=== PATIENT | male | born 1960 | race Caucasian/White ===

== ENCOUNTER 2020-02-23 07:53 | Inpatient (IN) | payer BC, OTHER ==
[2020-02-23] MEDS ORDERED: Nitroglycerin 0.4 MG Tab.SL SL PRN (07:59)
[2020-02-23] MEDS ORDERED: Sodium Chloride 0.9% 2.5 ML Syringe FLUSH PRN (07:59)
[2020-02-23] MEDS ORDERED: Aspirin 81 MG Tab.Chew PO ONE (07:59)
[2020-02-23] MEDS ORDERED: Sodium Chloride 0.9% 10 ML Syringe FLUSH PRN (07:59)
--- NOTE | 2020-02-23 08:01 | EDM.PDOC ---
ED HPI GENERAL MEDICAL PROBLEM - General Chief Complaint: Chest Pain Stated Complaint: CHEST PAIN, HIGH BLOOD PRESSURE Time Seen by Provider: 02/23/20 07:59 Source of Information: Reports: Patient History Limitations: Reports: No Limitations - History of Present Illness INITIAL COMMENTS - FREE TEXT/NARRATIVE: 59-year-old male with history of hypertension presents with chest pain and shortness of breath. Has chest pain has been intermittent since last Friday, localized to the left chest, nonradiating, associated with palpitation, shortness of breath, lightheadedness, dyspnea on exertion, orthopnea, clamminess. Today it got worse at 4:00 in the morning. Currently rated at 1/ 10. Patient is a chronic smoker and smokes about 2 packs/day, he also notes being chronically short of breath. His dyspnea has not changed today. He does note a chronic cough. He denies fever, chills, nausea, vomiting. He drank alcohol yesterday afternoon. He has not filled his medications since 2014. ROS: A 10-point review of systems, other than pertinent positives and negatives as stated per HPI, is otherwise negative PHYSICAL EXAM Vital signs noted. Pulse ox = 91% on RA (interpretation: hypoxic) General: AOx4, GCS = 15, moderate distress HEENT: dry mucous membrane Neck: supple, no meningismus, no Kernig or Brudzinski Cardiac: S1S2 tachycardia, no pedal edema Respiratory: mild respiratory distress, diminished breath sounds bilaterally with bibasilar Rales and expiratory wheezing. Tachypneic with retractions. Abdomen: Soft, nontender, no rebound or guarding, nondistended, no pulsatile mass. Back: nontender Musculoskeletal: NVI distally, no deformity Neuro: No focal deficits. MEDICAL DECISION MAKING: I reviewed the patients past medical records, lab and radiographic findings. I discussed the case with family members. My differential diagnosis included: ACS, COPD, CHF exacerbation Onset: Today - Related Data Allergies Allergy/AdvReac Type Severity Reaction Status Date / Time No Known Allergies Allergy Verified 02/23/20 08:03 Home Meds: Home Meds . [No Known Home Meds] 07/14/15 [History] Past Medical History - Past Health History Medical/Surgical History: Denies Medical/Surgical History ED ROS GENERAL - Review of Systems Review Of Systems: See Below (see dictation) ED EXAM, GENERAL - Physical Exam Exam: See Below (see dictation) ED CARDIOLOGY PROCEDURES - Additional/Other Procedure(s) Other (Free Text) Procedure(s): Advanced Care Planning: Aggregate [id number] time discussing end of life advanced care plan with patient and family for duration between 16 minutes. Discussed pulse, CPR, intubation, treatment goals, quality of life and intensity of care. Patient desires Full Code EKG INTERPRETATION EKG Interpretation Comments: #1: 110 bpm, sinus tachycardia, normal QRS interval, poor R wave progression, hyperacute T waves, no STEMI. EKG and rhythm strip interpreted by me at 0753 #2: 83 Bpm, NSR, normal QRS interval, no STEMI. EKG and rhythm strip interpreted by me at 1120 Course - Vital Signs Last Recorded V/S: Last Vital Signs Temp 98.5 F 02/23/20 07:59 Pulse 98 02/23/20 09:36 Resp 20 02/23/20 09:36 BP 148/79 H 02/23/20 09:36 Pulse Ox 92 L 02/23/20 10:36 - Orders/Labs/Meds Orders: Active Orders 24 hr Category Date Time Status Admission Status [Patient Status] [ADT] Stat ADT 02/23/20 12:09 Ordered Cardiac Monitoring [RC] . DIRECTED Care 02/23/20 07:59 Active EKG 12 Lead [EKG Documentation Completion] [RC] STAT Care 02/23/20 10:57 Active EKG Documentation Completion [RC] STAT Care 02/23/20 07:59 Active Pulse Oximetry [RC] ASDIRECTED Care 02/23/20 07:59 Active RT Aerosol Therapy [RC] ASDIRECTED Care 02/23/20 08:16 Active RT Aerosol Therapy [RC] ASDIRECTED Care 02/23/20 08:28 Active RT Aerosol Therapy [RC] ASDIRECTED Care 02/23/20 08:29 Active CULTURE BLOOD [BC] Stat Lab 02/23/20 09:25 Received CULTURE BLOOD [BC] Stat Lab 02/23/20 09:31 Received PROCALCITONIN [REF] Stat Lab 02/23/20 07:55 Received Nitroglycerin [Nitrostat] Med 02/23/20 07:59 Active 0.4 mg SL Q5M PRN Sodium Chloride 0.9% [Saline Flush] Med 02/23/20 07:59 Active 10 ml FLUSH ASDIRECTED PRN Sodium Chloride 0.9% [Saline Flush] Med 02/23/20 07:59 Active 2.5 ml FLUSH ASDIRECTED PRN Blood Culture x2 Reflex Set [OM.PC] Stat Oth 02/23/20 09:19 Ordered Isolation [COMM] Stat Oth 02/23/20 08:30 Active Saline Lock Insert [OM.PC] Stat Oth 02/23/20 07:59 Ordered Medication Orders Nitroglycerin (Nitrostat) 0.4 mg SL Q5M PRN PRN Reason: Chest Pain Last Admin: 02/23/20 08:11 Dose: 0.4 mg Sodium Chloride (Saline Flush) 10 ml FLUSH ASDIRECTED PRN PRN Reason: Keep Vein Open Last Admin: 02/23/20 08:11 Dose: 10 ml Sodium Chloride (Saline Flush) 2.5 ml FLUSH ASDIRECTED PRN PRN Reason: Keep Vein Open Last Admin: 02/23/20 08:11 Dose: 2.5 ml Labs: Laboratory Tests 02/23/20 02/23/20 02/23/20 Range/Units 07:55 07:55 07:55 WBC 13.36 H (4.0-11.0) K/uL RBC 5.48 (4.50-5.90) M/uL Hgb 18.1 H (13.0-17.0) g/dL Hct 52.3 H (38.0-50.0) % MCV 95.4 (80.0-98.0) fL MCH 33.0 H (27.0-32.0) pg MCHC 34.6 (31.0-37.0) g/dL RDW Std Deviation 49.5 (28.0-62.0) fl RDW Coeff of Andrew 14 (11.0-15.0) % Plt Count 249 (150-400) K/uL MPV 9.50 (7.40-12.00) fL Neut % (Auto) 72.7 (48.0-80.0) % Lymph % (Auto) 19.3 (16.0-40.0) % [place] % (Auto) 6.6 (0.0-15.0) % Eos % (Auto) 0.7 (0.0-7.0) % Baso % (Auto) 0.7 (0.0-1.5) % Neut # (Auto) 9.7 H (1.4-5.7) K/uL Lymph # (Auto) 2.6 H (0.6-2.4) K/uL [place] # (Auto) 0.9 H (0.0-0.8) K/uL Eos # (Auto) 0.1 (0.0-0.7) K/uL Baso # (Auto) 0.1 (0.0-0.1) K/uL Nucleated RBC % 0.0 /100WBC Nucleated RBCs # 0 K/uL INR 0.94 APTT (18.6-31.3) SEC D-Dimer, Quantitative (0.0-0.50) mg/L FEU ABG pH (7.35-7.45) ABG pCO2 (35-45) mmHG ABG pO2 (75-100) mmHG ABG HCO3 (22-26) mEq/L ABG Total CO2 ABG Base Excess (-2.0-2.0) Lactate (0.20-2.00) mmol/L Sodium 137 (136-148) mmol/L Potassium 4.2 (3.5-5.1) mmol/L Chloride 97 L (98-107) mmol/L Carbon Dioxide 24.3 (21.0-32.0) mmol/L BUN 16 (7.0-18.0) mg/dL Creatinine 1.0 (0.8-1.3) mg/dL Est Cr Clr Drug Dosing 84.20 mL/min Estimated GFR (MDRD) > 60.0 ml/min Glucose 121 H (74-106) mg/dL Calcium 9.8 (8.5-10.1) mg/dL Ferritin (26-388) ng/mL Total Bilirubin 0.8 (0.2-1.0) mg/dL AST 28 (15-37) IU/L ALT 25 (14-63) IU/L Alkaline Phosphatase 53 (46-116) U/L Lactate Dehydrogenase (81-234) U/L Troponin I < 0.050 (0.000-0.056) ng/mL B-Natriuretic Peptide (<100) PG/ML Total Protein 8.9 H (6.4-8.2) g/dL Albumin 4.7 (3.4-5.0) g/dL Globulin 4.2 H (2.6-4.0) g/dL Albumin/Globulin Ratio 1.1 (0.9-1.6) SARS-CoV-2 RNA (RT-PCR) (NEGATIVE) 02/23/20 02/23/20 02/23/20 Range/Units 07:55 07:55 07:55 WBC (4.0-11.0) K/uL RBC (4.50-5.90) M/uL Hgb (13.0-17.0) g/dL Hct (38.0-50.0) % MCV (80.0-98.0) fL MCH (27.0-32.0) pg MCHC (31.0-37.0) g/dL RDW Std Deviation (28.0-62.0) fl RDW Coeff of Andrew (11.0-15.0) % Plt Count (150-400) K/uL MPV (7.40-12.00) fL Neut % (Auto) (48.0-80.0) % Lymph % (Auto) (16.0-40.0) % [place] % (Auto) (0.0-15.0) % Eos % (Auto) (0.0-7.0) % Baso % (Auto) (0.0-1.5) % Neut # (Auto) (1.4-5.7) K/uL Lymph # (Auto) (0.6-2.4) K/uL [place] # (Auto) (0.0-0.8) K/uL Eos # (Auto) (0.0-0.7) K/uL Baso # (Auto) (0.0-0.1) K/uL Nucleated RBC % /100WBC Nucleated RBCs # K/uL INR APTT 26.4 (18.6-31.3) SEC D-Dimer, Quantitative (0.0-0.50) mg/L FEU ABG pH (7.35-7.45) ABG pCO2 (35-45) mmHG ABG pO2 (75-100) mmHG ABG HCO3 (22-26) mEq/L ABG Total CO2 ABG Base Excess (-2.0-2.0) Lactate (0.20-2.00) mmol/L Sodium (136-148) mmol/L Potassium (3.5-5.1) mmol/L Chloride (98-107) mmol/L Carbon Dioxide (21.0-32.0) mmol/L BUN (7.0-18.0) mg/dL Creatinine (0.8-1.3) mg/dL Est Cr Clr Drug Dosing mL/min Estimated GFR (MDRD) ml/min Glucose (74-106) mg/dL Calcium (8.5-10.1) mg/dL Ferritin 450 H (26-388) ng/mL Total Bilirubin (0.2-1.0) mg/dL AST (15-37) IU/L ALT (14-63) IU/L Alkaline Phosphatase (46-116) U/L Lactate Dehydrogenase (81-234) U/L Troponin I (0.000-0.056) ng/mL B-Natriuretic Peptide 6 (<100) PG/ML Total Protein (6.4-8.2) g/dL Albumin (3.4-5.0) g/dL Globulin (2.6-4.0) g/dL Albumin/Globulin Ratio (0.9-1.6) SARS-CoV-2 RNA (RT-PCR) (NEGATIVE) 02/23/20 02/23/20 02/23/20 Range/Units 07:55 07:55 08:30 WBC (4.0-11.0) K/uL RBC (4.50-5.90) M/uL Hgb (13.0-17.0) g/dL Hct (38.0-50.0) % MCV (80.0-98.0) fL MCH (27.0-32.0) pg MCHC (31.0-37.0) g/dL RDW Std Deviation (28.0-62.0) fl RDW Coeff of Andrew (11.0-15.0) % Plt Count (150-400) K/uL MPV (7.40-12.00) fL Neut % (Auto) (48.0-80.0) % Lymph % (Auto) (16.0-40.0) % [place] % (Auto) (0.0-15.0) % Eos % (Auto) (0.0-7.0) % Baso % (Auto) (0.0-1.5) % Neut # (Auto) (1.4-5.7) K/uL Lymph # (Auto) (0.6-2.4) K/uL [place] # (Auto) (0.0-0.8) K/uL Eos # (Auto) (0.0-0.7) K/uL Baso # (Auto) (0.0-0.1) K/uL Nucleated RBC % /100WBC Nucleated RBCs # K/uL INR APTT (18.6-31.3) SEC D-Dimer, Quantitative 0.56 H (0.0-0.50) mg/L FEU ABG pH (7.35-7.45) ABG pCO2 (35-45) mmHG ABG pO2 (75-100) mmHG ABG HCO3 (22-26) mEq/L ABG Total CO2 ABG Base Excess (-2.0-2.0) Lactate (0.20-2.00) mmol/L Sodium (136-148) mmol/L Potassium (3.5-5.1) mmol/L Chloride (98-107) mmol/L Carbon Dioxide (21.0-32.0) mmol/L BUN (7.0-18.0) mg/dL Creatinine (0.8-1.3) mg/dL Est Cr Clr Drug Dosing mL/min Estimated GFR (MDRD) ml/min Glucose (74-106) mg/dL Calcium (8.5-10.1) mg/dL Ferritin (26-388) ng/mL Total Bilirubin (0.2-1.0) mg/dL AST (15-37) IU/L ALT (14-63) IU/L Alkaline Phosphatase (46-116) U/L Lactate Dehydrogenase 334 H (81-234) U/L Troponin I (0.000-0.056) ng/mL B-Natriuretic Peptide (<100) PG/ML Total Protein (6.4-8.2) g/dL Albumin (3.4-5.0) g/dL Globulin (2.6-4.0) g/dL Albumin/Globulin Ratio (0.9-1.6) SARS-CoV-2 RNA (RT-PCR) NEGATIVE (NEGATIVE) 02/23/20 02/23/20 02/23/20 Range/Units 09:25 09:27 11:15 WBC (4.0-11.0) K/uL RBC (4.50-5.90) M/uL Hgb (13.0-17.0) g/dL Hct (38.0-50.0) % MCV (80.0-98.0) fL MCH (27.0-32.0) pg MCHC (31.0-37.0) g/dL RDW Std Deviation (28.0-62.0) fl RDW Coeff of Andrew (11.0-15.0) % Plt Count (150-400) K/uL MPV (7.40-12.00) fL Neut % (Auto) (48.0-80.0) % Lymph % (Auto) (16.0-40.0) % [place] % (Auto) (0.0-15.0) % Eos % (Auto) (0.0-7.0) % Baso % (Auto) (0.0-1.5) % Neut # (Auto) (1.4-5.7) K/uL Lymph # (Auto) (0.6-2.4) K/uL [place] # (Auto) (0.0-0.8) K/uL Eos # (Auto) (0.0-0.7) K/uL Baso # (Auto) (0.0-0.1) K/uL Nucleated RBC % /100WBC Nucleated RBCs # K/uL INR APTT (18.6-31.3) SEC D-Dimer, Quantitative (0.0-0.50) mg/L FEU ABG pH 7.394 (7.35-7.45) ABG pCO2 37 (35-45) mmHG ABG pO2 74 L (75-100) mmHG ABG HCO3 23 (22-26) mEq/L ABG Total CO2 19.7 ABG Base Excess -1.7 (-2.0-2.0) Lactate 1.9 (0.20-2.00) mmol/L Sodium (136-148) mmol/L Potassium (3.5-5.1) mmol/L Chloride (98-107) mmol/L Carbon Dioxide (21.0-32.0) mmol/L BUN (7.0-18.0) mg/dL Creatinine (0.8-1.3) mg/dL Est Cr Clr Drug Dosing mL/min Estimated GFR (MDRD) ml/min Glucose (74-106) mg/dL Calcium (8.5-10.1) mg/dL Ferritin (26-388) ng/mL Total Bilirubin (0.2-1.0) mg/dL AST (15-37) IU/L ALT (14-63) IU/L Alkaline Phosphatase (46-116) U/L Lactate Dehydrogenase (81-234) U/L Troponin I < 0.050 (0.000-0.056) ng/mL B-Natriuretic Peptide (<100) PG/ML Total Protein (6.4-8.2) g/dL Albumin (3.4-5.0) g/dL Globulin (2.6-4.0) g/dL Albumin/Globulin Ratio (0.9-1.6) SARS-CoV-2 RNA (RT-PCR) (NEGATIVE) Meds: Medications Generic Name Dose Route Start Last Admin Trade Name Freq PRN Reason Stop Dose Admin Nitroglycerin 0.4 mg 02/23/20 07:59 02/23/20 08:11 Nitrostat SL 0.4 mg Q5M PRN Administration Chest Pain Sodium Chloride 10 ml 02/23/20 07:59 02/23/20 08:11 Saline Flush FLUSH 10 ml ASDIRECTED PRN Administration Keep Vein Open Sodium Chloride 2.5 ml 02/23/20 07:59 02/23/20 08:11 Saline Flush FLUSH 2.5 ml ASDIRECTED PRN Administration Keep Vein Open Discontinued Medications Generic Name Dose Route Start Last Admin Trade Name Adam PRN Reason Stop Dose Admin Albuterol/Ipratropium 3 ml 02/23/20 08:16 02/23/20 08:31 Duoneb 3.0-0.5 Mg/3 Ml NEB 02/23/20 08:17 3 ml ONETIME ONE Administration Albuterol/Ipratropium 3 ml 02/23/20 08:28 02/23/20 08:31 Duoneb 3.0-0.5 Mg/3 Ml NEB 02/23/20 08:29 3 ml ONETIME ONE Administration Albuterol/Ipratropium 3 ml 02/23/20 08:29 02/23/20 08:31 Duoneb 3.0-0.5 Mg/3 Ml NEB 02/23/20 08:30 3 ml ONETIME ONE Administration Aspirin 324 mg 02/23/20 07:59 02/23/20 08:10 Aspirin PO 02/23/20 08:00 324 mg ONETIME ONE Administration Sodium Chloride 1,000 mls @ 999 mls/hr 02/23/20 08:41 02/23/20 08:42 Normal Saline IV 02/23/20 09:41 999 mls/hr .Bolus ONE Administration Methylprednisolone Sodium Succinate 125 mg 02/23/20 08:16 02/23/20 08:26 Solu-Medrol IVPUSH 02/23/20 08:17 125 mg ONETIME ONE Administration - Re-Assessments/Exams Free Text/Narrative Re-Assessment/Exam: 02/23/20 08:23 - patient given ASA 324mg PO, and 1 SL NTG, chest pain resolved, but now he's diaphoretic and retracting more significantly, will place on BiPAP for respiratory distress. Ordered DuoNeb treatment and Solu-Medrol 125mg IV. 02/23/20 08:33 - BP after 1 NTG = 99/65. Being placed on Bipap now. Free Text/Narrative Re-Assessment/Exam: 02/23/20 10:50 -patient symptoms much improved after Solu-Medrol, BiPAP, he is now normal weaned off BiPAP, no longer retracting or tachypneic. He feels much improved. He is 92% on 4L NC now. 02/23/20 11:30 - Paging Dr. Fraga for admission. 02/23/20 12:12 -case discussed with Dr. Fraga, who agrees to assume care at this point. The hospitalist's documentation supersedes all other documentation on this patient with regard to any conflicts or discrepancies from this point forward. Any emergency conditions have been treated to the ability of the ED prior to admission. Departure - Departure Time of Disposition: 11:31 Disposition: Admitted As Inpatient 66 Condition: Good, Fair Clinical Impression: Hypoxic, Respiratory failure with hypoxia, COPD exacerbation, Respiratory distress, Tobacco abuse, Tobacco dependence, Advance care planning Referrals: PCP,None [Primary Care Provider] - Forms: ED Department Discharge Critical Care Note - Critical Care Note Comments: Critical Care: The high probability of sudden, clinically significant deterioration in the patient's condition required the highest level of my preparedness to intervene urgently. The services I provided to this patient were to treat and/or prevent clinically significant deterioration. Services included the following: chart data review, reviewing nursing notes and/or old charts, documentation time, organization development consultant collaboration regarding findings and treatment options, medication orders and management, direct patient care, vital sign assessments and ordering, interpreting and reviewing diagnostic studies/lab tests. Aggregate critical care time includes only time during which I was engaged in work directly related to the patient's care, as described above, whether at the bedside or elsewhere in the Emergency Department. It did not include time spent performing other reported procedures or the services of residents, students, nurses or physician assistants. Frequent interventions and/or frequent repeat evaluations were required as well as counseling and coordination of care regarding prognosis, treatments, and discussions with patient, staff and consultants. Critical Care (excluding other procedures): 40 minutes Sepsis Event Note (ED) - Focused Exam Vital Signs: Vital Signs Temp Pulse Resp BP BP Pulse Ox 02/23/20 10:36 92 L 02/23/20 10:35 90 L 02/23/20 09:36 98 20 148/79 H 92 L 02/23/20 08:52 81 20 147/79 H 91 L 02/23/20 08:34 84/53 L 02/23/20 08:25 99/65 02/23/20 08:11 176/96 H 02/23/20 07:59 98.5 F 121 H 20 198/98 H 91 L - My Orders Last 24 Hours: My Active Orders 02/23/20 07:55 PROCALCITONIN [REF] Stat 02/23/20 07:59 Cardiac Monitoring [RC] . DIRECTED EKG Documentation Completion [RC] STAT Pulse Oximetry [RC] ASDIRECTED Nitroglycerin [Nitrostat] 0.4 mg SL Q5M PRN Sodium Chloride 0.9% [Saline Flush] 10 ml FLUSH ASDIRECTED PRN Sodium Chloride 0.9% [Saline Flush] 2.5 ml FLUSH ASDIRECTED PRN Saline Lock Insert [OM.PC] Stat 02/23/20 08:16 RT Aerosol Therapy [RC] ASDIRECTED 02/23/20 08:28 RT Aerosol Therapy [RC] ASDIRECTED 02/23/20 08:29 RT Aerosol Therapy [RC] ASDIRECTED 02/23/20 08:30 Isolation [COMM] Stat 02/23/20 09:19 Blood Culture x2 Reflex Set [OM.PC] Stat 02/23/20 09:25 CULTURE BLOOD [BC] Stat 02/23/20 09:31 CULTURE BLOOD [BC] Stat 02/23/20 10:57 EKG 12 Lead [EKG Documentation Completion] [RC] STAT 02/23/20 12:09 Admission Status [Patient Status] [ADT] Stat - Assessment/Plan Last 24 Hours: My Active Orders 02/23/20 07:55 PROCALCITONIN [REF] Stat 02/23/20 07:59 Cardiac Monitoring [RC] . DIRECTED EKG Documentation Completion [RC] STAT Pulse Oximetry [RC] ASDIRECTED Nitroglycerin [Nitrostat] 0.4 mg SL Q5M PRN Sodium Chloride 0.9% [Saline Flush] 10 ml FLUSH ASDIRECTED PRN Sodium Chloride 0.9% [Saline Flush] 2.5 ml FLUSH ASDIRECTED PRN Saline Lock Insert [OM.PC] Stat 02/23/20 08:16 RT Aerosol Therapy [RC] ASDIRECTED 02/23/20 08:28 RT Aerosol Therapy [RC] ASDIRECTED 02/23/20 08:29 RT Aerosol Therapy [RC] ASDIRECTED 02/23/20 08:30 Isolation [COMM] Stat 02/23/20 09:19 Blood Culture x2 Reflex Set [OM.PC] Stat 02/23/20 09:25 CULTURE BLOOD [BC] Stat 02/23/20 09:31 CULTURE BLOOD [BC] Stat 02/23/20 10:57 EKG 12 Lead [EKG Documentation Completion] [RC] STAT 02/23/20 12:09 Admission Status [Patient Status] [ADT] Stat
[2020-02-23] MEDS ORDERED: methylPREDNISolone Sodium Succinate 125 MG/2 ML SDV IVPUSH ONE (08:16)
[2020-02-23] MEDS ORDERED: Albuterol/Ipratropium 3.0-0.5 MG/3 ML Neb Soln NEB ONE ×3 (08:16→08:29)
[2020-02-23 08:37] LABS: BLOOD UREA NITROGEN,BUN 16 mg/dL (7.0-18.0); CARBON DIOXIDE,CO2 24.3 mmol/L (21.0-32.0); CHLORIDE,CL 97 mmol/L (98-107); GLUCOSE RANDOM 121 mg/dL (74-106); POTASSIUM,K 4.2 mmol/L (3.5-5.1); SODIUM,NA 137 mmol/L (136-148)
[2020-02-23] MEDS ORDERED: Sodium Chloride 0.9% 1,000 ML IV ONE ×2 (08:41→12:39)
--- NOTE | 2020-02-23 08:49 | CR ---
Chest: Frontal view of the chest was obtained in AP projection. Comparison: Prior chest x-ray of 05/16/15. Heart size and mediastinum are normal. Lungs are clear with no acute parenchymal change. Bony structures are grossly intact. Lungs are hyperinflated suggesting emphysematous change. Impression: 1. Possible emphysematous change. 2. Nothing acute is appreciated. Diagnostic code #2 This report was dictated in MDT
--- NOTE | 2020-02-23 11:02 | CT ---
CT chest Technique: Multiple axial sections through the chest were obtained. Study performed as a pulmonary angiogram protocol. Intravenous contrast was therefore utilized. Comparison: Prior chest x-ray of 02/23/20. Findings: Pulmonary arteries are moderately well opacified. No filling defects are seen within the main, segmental or proximal subsegmental branches. Nothing se is seen emed to indicate pulmonary embolism within these pulmonary arteries. Smaller distal subsegmental pulmonary emboli could be missed. Mediastinum and hilar region show no adenopathy. Aorta shows no aneurysm. Atherosclerotic calcification is noted within the aorta. No pericardial thickening is seen. Coronary artery calcification is noted. Lungs show no acute parenchymal change. Small subpleural nodule is noted within the right upper lung measuring 4 mm Bony structures shows nothing acute. Impression: 1. Small 4 mm nodule within the right upper lung. If patient is a smoker, recommend repeat exam in 9 months to confirm stability. This repeat study would occur in August,. 2. No definite findings of pulmonary embolism is seen. Small distal subsegmental pulmonary emboli could be missed. 3. Other findings believed to be nonacute as noted above. Diagnostic code #9 This report was dictated in MDT
--- NOTE | 2020-02-23 12:38 | PCM.HP.2 ---
<Rayray Carr - Last Filed: 02/23/20 17:31> H&P History of Present Illness - General Date of Service: 02/23/20 Admit Problem/Dx: Admission Diagnosis/Problem Admission Diagnosis/Problem COPD, Severe chronic obstructive pulmonary disease Source of Information: Patient History Limitations: Reports: No Limitations - History of Present Illness Initial Comments - Free Text/Narative: Patient is a 59-year-old male with a significant past medical history of hypertension, daily 2 pack/day cigarettes times greater than 20 years; presenting today with increasing shortness of breath, productive cough and dyspnea on exertion starting 2 days ago but acutely worsening this morning. Patient woke up this morning at 4 AM and noticing increasing cough and shortness of breath and mild palpitations; continue to smoke and thereafter thinking that maybe he needed to smoke some more; however shortness of breath and coughing persisted and proceeded to the ED. mentions having a similar episode like this many years ago; but denies ever being officially diagnosed with COPD. Denies ever being on any inhalers, controllers; states blood pressure medication is as needed. ED course: Chest x-ray; emphysematous type changes, CT angios no acute definitive signs of pulmonary embolus, sinus tachycardia on EKG however resolved and improving; patient received 3 DuoNeb treatments and was placed on supplemental oxygen. Briefly on BiPAP; however transition back to nasal cannula 4 L. Patient endorsed feeling better and no other complaints at this time Bedside: No new complaints. - Related Data Allergies/Adverse Reactions: Allergies Allergy/AdvReac Type Severity Reaction Status Date / Time No Known Allergies Allergy Verified 02/23/20 13:10 Home Medications: Home Meds Albuterol Sulfate [Albuterol Sulfate Hfa] 6.7 gm IH BID PRN 30 Days #1 hfa.aer.[email or web address] 02/25/20 [Rx] Fluticasone Propion/Salmeterol [Advair 250-50 Diskus] 1 each IH DAILY 30 Days # 1 blst.w.dev 02/25/20 [Rx] Nicotine [Habitrol] 21 mg TRDERM DAILY patch 02/25/20 [Rx] Nicotine [Nicotine Patch] 21 mg TD DAILY 30 Days #30 patch 02/25/20 [Rx] levoFLOXacin [Levaquin] 750 mg PO DAILY 4 Days #4 tablet 02/25/20 [Rx] methylPREDNISolone [Medrol Dose Pack] 4 mg PO DAILY #1 dospk 02/25/20 [Rx] Past Medical History - Past Health History Medical/Surgical History: Denies Medical/Surgical History Social & Family History - Family History Family Medical History: Noncontributory - Tobacco Use Smoking Status *Q: Current Every Day Smoker Years of Tobacco use: 40 Packs/Tins Daily: 2 H&P Review of Systems - Review of Systems: Review Of Systems: See Below General: Denies: Fever, Chills, Malaise, Weakness, Fatigue HEENT: Reports: No Symptoms Pulmonary: Reports: Shortness of Breath, Cough, Sputum. Denies: Wheezing, Pleuritic Chest Pain, Hemoptysis Cardiovascular: Reports: Palpitations, Dyspnea on Exertion. Denies: Chest Pain , Edema Gastrointestinal: Reports: No Symptoms. Denies: Abdominal Pain, Constipation, Diarrhea Genitourinary: Reports: No Symptoms Musculoskeletal: Reports: No Symptoms Skin: Reports: No Symptoms Psychiatric: Reports: No Symptoms Neurological: Reports: No Symptoms Hematologic/Lymphatic: Denies: Swollen Glands Exam - Exam Exam: See Below - Vital Signs Vital Signs: Last Vital Signs Temp 98.5 F 02/23/20 07:59 Pulse 98 02/23/20 09:36 Resp 20 02/23/20 09:36 BP 148/79 H 02/23/20 09:36 Pulse Ox 92 L 02/23/20 10:36 Weight: 74.843 kg - Exam Quality Assessment: Supplemental Oxygen General: Alert, Oriented, Cooperative HEENT: EOMI. No: Mucosa Moist & [place] (slightly dry ) Neck: Supple, Trachea Midline Lungs: Other (tight BS; moving air but shortened I:E phase ; no apprecaible wheeze; tight ; no rales and or rhonchi either ) Cardiovascular: Regular Rhythm, Tachycardia GI/Abdominal Exam: Soft, Non-Tender, No Organomegaly (Male) Exam: No Hernia Back Exam: Normal Inspection Extremities: Normal Inspection Skin: Warm, Dry Neurological: Cranial Nerves Intact Neuro Extensive - Mental Status: Alert, Oriented x3, Normal Mood/Affect Neuro Extensive - Motor, Sensory, Reflexes: CN II-XII Intact - Patient Data Lab Results Last 24 hrs: Laboratory Results - last 24 hr 02/23/20 02/23/20 02/23/20 Range/Units 07:55 07:55 07:55 WBC 13.36 H (4.0-11.0) K/uL RBC 5.48 (4.50-5.90) M/uL Hgb 18.1 H (13.0-17.0) g/dL Hct 52.3 H (38.0-50.0) % MCV 95.4 (80.0-98.0) fL MCH 33.0 H (27.0-32.0) pg MCHC 34.6 (31.0-37.0) g/dL RDW Std Deviation 49.5 (28.0-62.0) fl RDW Coeff of Andrew 14 (11.0-15.0) % Plt Count 249 (150-400) K/uL MPV 9.50 (7.40-12.00) fL Neut % (Auto) 72.7 (48.0-80.0) % Lymph % (Auto) 19.3 (16.0-40.0) % [place] % (Auto) 6.6 (0.0-15.0) % Eos % (Auto) 0.7 (0.0-7.0) % Baso % (Auto) 0.7 (0.0-1.5) % Neut # (Auto) 9.7 H (1.4-5.7) K/uL Lymph # (Auto) 2.6 H (0.6-2.4) K/uL [place] # (Auto) 0.9 H (0.0-0.8) K/uL Eos # (Auto) 0.1 (0.0-0.7) K/uL Baso # (Auto) 0.1 (0.0-0.1) K/uL Nucleated RBC % 0.0 /100WBC Nucleated RBCs # 0 K/uL INR 0.94 APTT (18.6-31.3) SEC D-Dimer, Quantitative (0.0-0.50) mg/L FEU ABG pH (7.35-7.45) ABG pCO2 (35-45) mmHG ABG pO2 (75-100) mmHG ABG HCO3 (22-26) mEq/L ABG Total CO2 ABG Base Excess (-2.0-2.0) Lactate (0.20-2.00) mmol/L Sodium 137 (136-148) mmol/L Potassium 4.2 (3.5-5.1) mmol/L Chloride 97 L (98-107) mmol/L Carbon Dioxide 24.3 (21.0-32.0) mmol/L BUN 16 (7.0-18.0) mg/dL Creatinine 1.0 (0.8-1.3) mg/dL Est Cr Clr Drug Dosing 84.20 mL/min Estimated GFR (MDRD) > 60.0 ml/min Glucose 121 H (74-106) mg/dL Calcium 9.8 (8.5-10.1) mg/dL Ferritin (26-388) ng/mL Total Bilirubin 0.8 (0.2-1.0) mg/dL AST 28 (15-37) IU/L ALT 25 (14-63) IU/L Alkaline Phosphatase 53 (46-116) U/L Lactate Dehydrogenase (81-234) U/L Troponin I < 0.050 (0.000-0.056) ng/mL B-Natriuretic Peptide (<100) PG/ML Total Protein 8.9 H (6.4-8.2) g/dL Albumin 4.7 (3.4-5.0) g/dL Globulin 4.2 H (2.6-4.0) g/dL Albumin/Globulin Ratio 1.1 (0.9-1.6) SARS-CoV-2 RNA (RT-PCR) (NEGATIVE) 02/23/20 02/23/20 02/23/20 Range/Units 07:55 07:55 07:55 WBC (4.0-11.0) K/uL RBC (4.50-5.90) M/uL Hgb (13.0-17.0) g/dL Hct (38.0-50.0) % MCV (80.0-98.0) fL MCH (27.0-32.0) pg MCHC (31.0-37.0) g/dL RDW Std Deviation (28.0-62.0) fl RDW Coeff of Andrew (11.0-15.0) % Plt Count (150-400) K/uL MPV (7.40-12.00) fL Neut % (Auto) (48.0-80.0) % Lymph % (Auto) (16.0-40.0) % [place] % (Auto) (0.0-15.0) % Eos % (Auto) (0.0-7.0) % Baso % (Auto) (0.0-1.5) % Neut # (Auto) (1.4-5.7) K/uL Lymph # (Auto) (0.6-2.4) K/uL [place] # (Auto) (0.0-0.8) K/uL Eos # (Auto) (0.0-0.7) K/uL Baso # (Auto) (0.0-0.1) K/uL Nucleated RBC % /100WBC Nucleated RBCs # K/uL INR APTT 26.4 (18.6-31.3) SEC D-Dimer, Quantitative (0.0-0.50) mg/L FEU ABG pH (7.35-7.45) ABG pCO2 (35-45) mmHG ABG pO2 (75-100) mmHG ABG HCO3 (22-26) mEq/L ABG Total CO2 ABG Base Excess (-2.0-2.0) Lactate (0.20-2.00) mmol/L Sodium (136-148) mmol/L Potassium (3.5-5.1) mmol/L Chloride (98-107) mmol/L Carbon Dioxide (21.0-32.0) mmol/L BUN (7.0-18.0) mg/dL Creatinine (0.8-1.3) mg/dL Est Cr Clr Drug Dosing mL/min Estimated GFR (MDRD) ml/min Glucose (74-106) mg/dL Calcium (8.5-10.1) mg/dL Ferritin 450 H (26-388) ng/mL Total Bilirubin (0.2-1.0) mg/dL AST (15-37) IU/L ALT (14-63) IU/L Alkaline Phosphatase (46-116) U/L Lactate Dehydrogenase (81-234) U/L Troponin I (0.000-0.056) ng/mL B-Natriuretic Peptide 6 (<100) PG/ML Total Protein (6.4-8.2) g/dL Albumin (3.4-5.0) g/dL Globulin (2.6-4.0) g/dL Albumin/Globulin Ratio (0.9-1.6) SARS-CoV-2 RNA (RT-PCR) (NEGATIVE) 02/23/20 02/23/20 02/23/20 Range/Units 07:55 07:55 08:30 WBC (4.0-11.0) K/uL RBC (4.50-5.90) M/uL Hgb (13.0-17.0) g/dL Hct (38.0-50.0) % MCV (80.0-98.0) fL MCH (27.0-32.0) pg MCHC (31.0-37.0) g/dL RDW Std Deviation (28.0-62.0) fl RDW Coeff of Andrew (11.0-15.0) % Plt Count (150-400) K/uL MPV (7.40-12.00) fL Neut % (Auto) (48.0-80.0) % Lymph % (Auto) (16.0-40.0) % [place] % (Auto) (0.0-15.0) % Eos % (Auto) (0.0-7.0) % Baso % (Auto) (0.0-1.5) % Neut # (Auto) (1.4-5.7) K/uL Lymph # (Auto) (0.6-2.4) K/uL [place] # (Auto) (0.0-0.8) K/uL Eos # (Auto) (0.0-0.7) K/uL Baso # (Auto) (0.0-0.1) K/uL Nucleated RBC % /100WBC Nucleated RBCs # K/uL INR APTT (18.6-31.3) SEC D-Dimer, Quantitative 0.56 H (0.0-0.50) mg/L FEU ABG pH (7.35-7.45) ABG pCO2 (35-45) mmHG ABG pO2 (75-100) mmHG ABG HCO3 (22-26) mEq/L ABG Total CO2 ABG Base Excess (-2.0-2.0) Lactate (0.20-2.00) mmol/L Sodium (136-148) mmol/L Potassium (3.5-5.1) mmol/L Chloride (98-107) mmol/L Carbon Dioxide (21.0-32.0) mmol/L BUN (7.0-18.0) mg/dL Creatinine (0.8-1.3) mg/dL Est Cr Clr Drug Dosing mL/min Estimated GFR (MDRD) ml/min Glucose (74-106) mg/dL Calcium (8.5-10.1) mg/dL Ferritin (26-388) ng/mL Total Bilirubin (0.2-1.0) mg/dL AST (15-37) IU/L ALT (14-63) IU/L Alkaline Phosphatase (46-116) U/L Lactate Dehydrogenase 334 H (81-234) U/L Troponin I (0.000-0.056) ng/mL B-Natriuretic Peptide (<100) PG/ML Total Protein (6.4-8.2) g/dL Albumin (3.4-5.0) g/dL Globulin (2.6-4.0) g/dL Albumin/Globulin Ratio (0.9-1.6) SARS-CoV-2 RNA (RT-PCR) NEGATIVE (NEGATIVE) 02/23/20 02/23/20 02/23/20 Range/Units 09:25 09:27 11:15 WBC (4.0-11.0) K/uL RBC (4.50-5.90) M/uL Hgb (13.0-17.0) g/dL Hct (38.0-50.0) % MCV (80.0-98.0) fL MCH (27.0-32.0) pg MCHC (31.0-37.0) g/dL RDW Std Deviation (28.0-62.0) fl RDW Coeff of Andrew (11.0-15.0) % Plt Count (150-400) K/uL MPV (7.40-12.00) fL Neut % (Auto) (48.0-80.0) % Lymph % (Auto) (16.0-40.0) % [place] % (Auto) (0.0-15.0) % Eos % (Auto) (0.0-7.0) % Baso % (Auto) (0.0-1.5) % Neut # (Auto) (1.4-5.7) K/uL Lymph # (Auto) (0.6-2.4) K/uL [place] # (Auto) (0.0-0.8) K/uL Eos # (Auto) (0.0-0.7) K/uL Baso # (Auto) (0.0-0.1) K/uL Nucleated RBC % /100WBC Nucleated RBCs # K/uL INR APTT (18.6-31.3) SEC D-Dimer, Quantitative (0.0-0.50) mg/L FEU ABG pH 7.394 (7.35-7.45) ABG pCO2 37 (35-45) mmHG ABG pO2 74 L (75-100) mmHG ABG HCO3 23 (22-26) mEq/L ABG Total CO2 19.7 ABG Base Excess -1.7 (-2.0-2.0) Lactate 1.9 (0.20-2.00) mmol/L Sodium (136-148) mmol/L Potassium (3.5-5.1) mmol/L Chloride (98-107) mmol/L Carbon Dioxide (21.0-32.0) mmol/L BUN (7.0-18.0) mg/dL Creatinine (0.8-1.3) mg/dL Est Cr Clr Drug Dosing mL/min Estimated GFR (MDRD) ml/min Glucose (74-106) mg/dL Calcium (8.5-10.1) mg/dL Ferritin (26-388) ng/mL Total Bilirubin (0.2-1.0) mg/dL AST (15-37) IU/L ALT (14-63) IU/L Alkaline Phosphatase (46-116) U/L Lactate Dehydrogenase (81-234) U/L Troponin I < 0.050 (0.000-0.056) ng/mL B-Natriuretic Peptide (<100) PG/ML Total Protein (6.4-8.2) g/dL Albumin (3.4-5.0) g/dL Globulin (2.6-4.0) g/dL Albumin/Globulin Ratio (0.9-1.6) SARS-CoV-2 RNA (RT-PCR) (NEGATIVE) Result Diagrams: 02/23/20 07:55 02/23/20 07:55 Sepsis Event Note - Evaluation Sepsis Screening Result: No Definite Risk - Focused Exam Vital Signs: Vital Signs Temp Pulse Resp BP BP Pulse Ox 02/23/20 10:36 92 L 02/23/20 10:35 90 L 02/23/20 09:36 98 20 148/79 H 92 L 02/23/20 08:52 81 20 147/79 H 91 L 02/23/20 08:34 84/53 L 02/23/20 08:25 99/65 02/23/20 08:11 176/96 H 02/23/20 07:59 98.5 F 121 H 20 198/98 H 91 L Date Exam was Performed: 02/23/20 Time Exam was Performed: 17:31 Problem List Initiated/Reviewed/Updated: Yes Orders Last 24hrs: Active Orders 24 hr Category Date Time Status Admission Status [Patient Status] [ADT] Stat ADT 02/23/20 12:09 Active Activity as Tolerated [RC] .Routine Care 02/23/20 12:35 Ordered Cardiac Monitoring [RC] . DIRECTED Care 02/23/20 07:59 Active EKG 12 Lead [EKG Documentation Completion] [RC] STAT Care 02/23/20 10:57 Active EKG Documentation Completion [RC] STAT Care 02/23/20 07:59 Active Pulse Oximetry [RC] ASDIRECTED Care 02/23/20 07:59 Active RT Aerosol Therapy [RC] ASDIRECTED Care 02/23/20 08:16 Active RT Aerosol Therapy [RC] ASDIRECTED Care 02/23/20 08:28 Active RT Aerosol Therapy [RC] ASDIRECTED Care 02/23/20 08:29 Active Vital Signs [RC] PER UNIT ROUTINE Care 02/23/20 12:34 Ordered CULTURE BLOOD [BC] Stat Lab 02/23/20 09:25 Received CULTURE BLOOD [BC] Stat Lab 02/23/20 09:31 Received PROCALCITONIN [REF] Stat Lab 02/23/20 07:55 Received Heparin Sodium Med 02/23/20 12:45 Ordered 5,000 units IVPUSH Q12H Nicotine [Habitrol] Med 02/23/20 12:45 Ordered 21 mg TRDERM DAILY Nitroglycerin [Nitrostat] Med 02/23/20 07:59 Active 0.4 mg SL Q5M PRN Omeprazole Med 02/23/20 17:00 Ordered 20 mg PO BIDAC Sodium Chloride 0.9% [Saline Flush] Med 02/23/20 07:59 Active 10 ml FLUSH ASDIRECTED PRN Sodium Chloride 0.9% [Saline Flush] Med 02/23/20 07:59 Active 2.5 ml FLUSH ASDIRECTED PRN Blood Culture x2 Reflex Set [OM.PC] Stat Ot 02/23/20 09:19 Ordered Isolation [COMM] Stat Ot 02/23/20 08:30 Active Saline Lock Insert [OM.PC] Stat Ot 02/23/20 07:59 Ordered Code Status [Resuscitation Status] Stat Resus Stat 02/23/20 12:36 Ordered Medication Orders Heparin Sodium (Porcine) (Heparin Sodium) 5,000 units IVPUSH Q12H AAYUSH Nicotine (Habitrol) 21 mg TRDERM DAILY AAYUSH Nitroglycerin (Nitrostat) 0.4 mg SL Q5M PRN PRN Reason: Chest Pain Last Admin: 02/23/20 08:11 Dose: 0.4 mg Omeprazole (Omeprazole) 20 mg PO BIDAC AAYUSH Sodium Chloride (Saline Flush) 10 ml FLUSH ASDIRECTED PRN PRN Reason: Keep Vein Open Last Admin: 02/23/20 08:11 Dose: 10 ml Sodium Chloride (Saline Flush) 2.5 ml FLUSH ASDIRECTED PRN PRN Reason: Keep Vein Open Last Admin: 02/23/20 08:11 Dose: 2.5 ml Assessment/Plan Comment:: Assessment; 1. Acute hypoxic respiratory failure 2ndry to COPD exacerbation 2. Daily tobacco abuse 3. Leukocytosis 4.HTN Plan Admit to obs. Full code. Vitals per routine. up ad apple. Diet: regular DVT: heparin 5000 q12. GI prophylaxis:omeprazole 20 bid. Nicotine patch COVID - 1. Clinical diagnosis of COPD in setting of chronic daily tobacco abuse: received IV methylpred in ED ; continue daily methylpred 140. IV fluids : maintenance; no discernible Pseudomonal risk factors except for COPD ; will start pt. on respiratory fluoroquinolone: Levaquin 750 daily Duo-nebs q 4hrs scheduled; can switch to ipratropium alone if tachycardia worsens; NSR now CT-angio negative for obvious acute PE; will recheck if worsening despite current management Continue supplemental O2 for maintaining sats >92% 2. HTN: review home meds; currently stable. 3. Tobacco abuse: 21 mcg nicotine patch daily 4. 4 mm nodule in RUL: incidental finding ; recommeded repeat imaging in 1-2 months per radiology. <Giorgio Fraga - Last Filed: 02/29/20 14:49> H&P History of Present Illness - General Admit Problem/Dx: Admission Diagnosis/Problem Admission Diagnosis/Problem COPD, Severe chronic obstructive pulmonary disease Exam - Vital Signs Vital Signs: Last Vital Signs Temp 37.4 C 02/25/20 08:00 Pulse 72 02/25/20 08:00 Resp 18 02/25/20 08:00 BP 138/60 02/25/20 08:00 Pulse Ox 92 L 02/25/20 08:00 - Patient Data Result Diagrams: 02/25/20 06:01 02/25/20 06:01 Assessment/Plan Comment:: I performed a history and physical exam of the patient and discussed management with resident. I have reviewed the residents note and agree with documented findings and plan unless otherwise specified in my note.
[2020-02-23] MEDS: Heparin Sodium 5,000 Units/ML Vial IVPUSH SCH (13:24)
[2020-02-23] MEDS: Nicotine 21 MG/24 Hr Patch TRDERM SCH (13:25)
[2020-02-23] MEDS ORDERED: Levofloxacin/Dextrose 5%-Water 750 MG in Premix Bag 1 BAG IV ONE (13:25)
[2020-02-23] MEDS: Albuterol/Ipratropium 3.0-0.5 MG/3 ML Neb Soln NEB SCH ×3 (14:05→21:10)
[2020-02-23] MEDS ORDERED: Iopamidol 755 MG/ML 500 ML Multipack Bottle IVPUSH STA (15:09)
[2020-02-23] MEDS: Omeprazole 20 MG Cap.CR PO SCH (17:11)
[2020-02-24] MEDS: Albuterol/Ipratropium 3.0-0.5 MG/3 ML Neb Soln NEB SCH ×6 (01:22→21:20)
[2020-02-24] MEDS: Heparin Sodium 5,000 Units/ML Vial IVPUSH SCH (01:23)
[2020-02-24] MEDS: Heparin Sodium 5,000 Units/ML Vial SUBCUT SCH ×2 (01:35→13:16)
[2020-02-24] MEDS: Omeprazole 20 MG Cap.CR PO SCH ×2 (06:56→17:21)
[2020-02-24 07:01] LABS: BLOOD UREA NITROGEN,BUN 11 mg/dL (7.0-18.0); CARBON DIOXIDE,CO2 26.4 mmol/L (21.0-32.0); CHLORIDE,CL 102 mmol/L (98-107); GLUCOSE RANDOM 201 mg/dL (74-106); POTASSIUM,K 4.1 mmol/L (3.5-5.1); SODIUM,NA 138 mmol/L (136-148)
[2020-02-24 08:22] LABS: HEMOGLOBIN A1C 5.9 % (4.5-6.2)
[2020-02-24] MEDS: methylPREDNISolone Sodium Succinate 125 MG/2 ML SDV IVPUSH SCH (09:35)
[2020-02-24] MEDS: Nicotine 21 MG/24 Hr Patch TRDERM SCH (09:35)
--- NOTE | 2020-02-24 11:27 | PCM.PN ---
- General Info Date of Service: 02/24/20 Subjective Update: Endorses feeling better; less sputum production. SOB improving as well. Functional Status: Reports: Pain Controlled - Review of Systems General: Reports: No Symptoms HEENT: Reports: No Symptoms Pulmonary: Reports: Shortness of Breath (improving ), Cough (imrpoving ), Sputum (reduced production ). Denies: Hemoptysis, Wheezing Cardiovascular: Reports: No Symptoms Gastrointestinal: Reports: No Symptoms Genitourinary: Reports: No Symptoms Musculoskeletal: Reports: No Symptoms Neurological: Reports: No Symptoms Psychiatric: Reports: No Symptoms - Patient Data Vitals - Most Recent: Last Vital Signs Temp 98.2 F 02/24/20 08:00 Pulse 74 02/24/20 08:00 Resp 20 02/24/20 08:00 BP 126/58 L 02/24/20 08:00 Pulse Ox 92 L 02/24/20 08:00 Weight - Most Recent: 74.843 kg I&O - Last 24 Hours: Intake & Output 02/23/20 02/24/20 02/24/20 22:59 06:59 14:59 Intake Total 600 700 Output Total 700 500 Balance -100 200 Lab Results Last 24 Hours: Laboratory Results - last 24 hr 02/23/20 02/23/20 02/24/20 Range/Units 07:55 11:15 05:54 WBC 17.84 H (4.0-11.0) K/uL RBC 4.37 L (4.50-5.90) M/uL Hgb 14.3 (13.0-17.0) g/dL Hct 41.3 (38.0-50.0) % MCV 94.5 (80.0-98.0) fL MCH 32.7 H (27.0-32.0) pg MCHC 34.6 (31.0-37.0) g/dL RDW Std Deviation 46.1 (28.0-62.0) fl RDW Coeff of Andrew 14 (11.0-15.0) % Plt Count 216 (150-400) K/uL MPV 9.70 (7.40-12.00) fL Neut % (Auto) 81.0 H (48.0-80.0) % Lymph % (Auto) 9.3 L (16.0-40.0) % [place] % (Auto) 9.5 (0.0-15.0) % Eos % (Auto) 0.1 (0.0-7.0) % Baso % (Auto) 0.1 (0.0-1.5) % Neut # (Auto) 14.5 H (1.4-5.7) K/uL Lymph # (Auto) 1.7 (0.6-2.4) K/uL [place] # (Auto) 1.7 H (0.0-0.8) K/uL Eos # (Auto) 0.0 (0.0-0.7) K/uL Baso # (Auto) 0.0 (0.0-0.1) K/uL Sodium (136-148) mmol/L Potassium (3.5-5.1) mmol/L Chloride (98-107) mmol/L Carbon Dioxide (21.0-32.0) mmol/L BUN (7.0-18.0) mg/dL Creatinine (0.8-1.3) mg/dL Est Cr Clr Drug Dosing mL/min Estimated GFR (MDRD) ml/min Glucose (74-106) mg/dL Hemoglobin A1c (4.5-6.2) % Calcium (8.5-10.1) mg/dL Total Bilirubin (0.2-1.0) mg/dL AST (15-37) IU/L ALT (14-63) IU/L Alkaline Phosphatase (46-116) U/L Troponin I < 0.050 (0.000-0.056) ng/mL Total Protein (6.4-8.2) g/dL Albumin (3.4-5.0) g/dL Globulin (2.6-4.0) g/dL Albumin/Globulin Ratio (0.9-1.6) Procalcitonin <0.05 (<0.10) ng/mL 02/24/20 02/24/20 Range/Units 05:54 05:54 WBC (4.0-11.0) K/uL RBC (4.50-5.90) M/uL Hgb (13.0-17.0) g/dL Hct (38.0-50.0) % MCV (80.0-98.0) fL MCH (27.0-32.0) pg MCHC (31.0-37.0) g/dL RDW Std Deviation (28.0-62.0) fl RDW Coeff of Andrew (11.0-15.0) % Plt Count (150-400) K/uL MPV (7.40-12.00) fL Neut % (Auto) (48.0-80.0) % Lymph % (Auto) (16.0-40.0) % [place] % (Auto) (0.0-15.0) % Eos % (Auto) (0.0-7.0) % Baso % (Auto) (0.0-1.5) % Neut # (Auto) (1.4-5.7) K/uL Lymph # (Auto) (0.6-2.4) K/uL [place] # (Auto) (0.0-0.8) K/uL Eos # (Auto) (0.0-0.7) K/uL Baso # (Auto) (0.0-0.1) K/uL Sodium 138 (136-148) mmol/L Potassium 4.1 (3.5-5.1) mmol/L Chloride 102 (98-107) mmol/L Carbon Dioxide 26.4 (21.0-32.0) mmol/L BUN 11 (7.0-18.0) mg/dL Creatinine 1.0 (0.8-1.3) mg/dL Est Cr Clr Drug Dosing 84.20 mL/min Estimated GFR (MDRD) > 60.0 ml/min Glucose 201 H (74-106) mg/dL Hemoglobin A1c 5.9 (4.5-6.2) % Calcium 9.2 (8.5-10.1) mg/dL Total Bilirubin 0.4 (0.2-1.0) mg/dL AST 20 (15-37) IU/L ALT 20 (14-63) IU/L Alkaline Phosphatase 36 L (46-116) U/L Troponin I (0.000-0.056) ng/mL Total Protein 6.5 (6.4-8.2) g/dL Albumin 3.5 (3.4-5.0) g/dL Globulin 3.0 (2.6-4.0) g/dL Albumin/Globulin Ratio 1.2 (0.9-1.6) Procalcitonin (<0.10) ng/mL [facility] Results Last 24 Hours: Microbiology 02/23/20 09:31 Aerobic Blood Culture - Preliminary Blood - Venous NO GROWTH AFTER 1 DAY Anaerobic Blood Culture - Preliminary NO GROWTH AFTER 1 DAY 02/23/20 09:25 Aerobic Blood Culture - Preliminary Blood NO GROWTH AFTER 1 DAY Anaerobic Blood Culture - Preliminary NO GROWTH AFTER 1 DAY Med Orders - Current: Current Medications Albuterol/Ipratropium (Duoneb 3.0-0.5 Mg/3 Ml) 3 ml NEB Q4HRRT [facility] Last Admin: 02/24/20 09:29 Dose: 3 ml Heparin Sodium (Porcine) (Heparin Sodium) 5,000 units SUBCUT Q12H [facility] Last Admin: 02/24/20 01:35 Dose: 5,000 units Insulin Aspart (Novolog) 0 unit SUBCUT TIDAC [facility]; Protocol Methylprednisolone Sodium Succinate (Solu-Medrol) 125 mg IVPUSH DAILY [facility] Last Admin: 02/24/20 09:35 Dose: 125 mg Nicotine (Habitrol) 21 mg TRDERM DAILY [facility] Last Admin: 02/24/20 09:35 Dose: 21 mg Nitroglycerin (Nitrostat) 0.4 mg SL Q5M PRN PRN Reason: Chest Pain Last Admin: 02/23/20 08:11 Dose: 0.4 mg Omeprazole (Omeprazole) 20 mg PO BIDAC [facility] Last Admin: 02/24/20 06:56 Dose: 20 mg Sodium Chloride (Saline Flush) 10 ml FLUSH ASDIRECTED PRN PRN Reason: Keep Vein Open Last Admin: 02/23/20 08:11 Dose: 10 ml Sodium Chloride (Saline Flush) 2.5 ml FLUSH ASDIRECTED PRN PRN Reason: Keep Vein Open Last Admin: 02/23/20 08:11 Dose: 2.5 ml Discontinued Medications Albuterol/Ipratropium (Duoneb 3.0-0.5 Mg/3 Ml) 3 ml NEB ONETIME ONE Stop: 02/23/20 08:17 Last Admin: 02/23/20 08:31 Dose: 3 ml Albuterol/Ipratropium (Duoneb 3.0-0.5 Mg/3 Ml) 3 ml NEB ONETIME ONE Stop: 02/23/20 08:29 Last Admin: 02/23/20 08:31 Dose: 3 ml Albuterol/Ipratropium (Duoneb 3.0-0.5 Mg/3 Ml) 3 ml NEB ONETIME ONE Stop: 02/23/20 08:30 Last Admin: 02/23/20 08:31 Dose: 3 ml Aspirin (Aspirin) 324 mg PO ONETIME ONE Stop: 02/23/20 08:00 Last Admin: 02/23/20 08:10 Dose: 324 mg Heparin Sodium (Porcine) (Heparin Sodium) 5,000 units IVPUSH Q12H [facility] Last Admin: 02/24/20 01:23 Dose: Not Given Sodium Chloride (Normal Saline) 1,000 mls @ 999 mls/hr IV .Bolus ONE Stop: 02/23/20 09:41 Last Infusion: 02/23/20 09:10 Dose: 999 mls/hr Sodium Chloride (Normal Saline) 1,000 mls @ 120 mls/hr IV CONTINUOUS ONE Stop: 02/23/20 20:58 Last Admin: 02/23/20 13:20 Dose: 120 mls/hr Levofloxacin/Dextrose 750 mg/ (Premix) 150 mls @ 100 mls/hr IV DAILY ONE Stop: 02/23/20 14:54 Last Admin: 02/23/20 13:44 Dose: 100 mls/hr Iopamidol (Isovue Multipack-370 (76%)) 50 ml IVPUSH ONETIME STA Stop: 02/23/20 15:10 Last Admin: 02/23/20 15:15 Dose: 50 ml Methylprednisolone Sodium Succinate (Solu-Medrol) 125 mg IVPUSH ONETIME ONE Stop: 02/23/20 08:17 Last Admin: 02/23/20 08:26 Dose: 125 mg - Exam Quality Assessment: Supplemental Oxygen General: Alert, Oriented, Cooperative, No Acute Distress HEENT: EOMI Neck: Supple Lungs: Other (No wheeze,rales or rhonchi; improved I:E ; moving air but less tight than yesterday ; interval improvement ) Cardiovascular: Regular Rate, Regular Rhythm GI/Abdominal Exam: Soft Back Exam: Normal Inspection Extremities: Normal Inspection Skin: Warm, Dry Neurological: No New Focal Deficit Psy/Mental Status: Alert, Normal Affect, Normal Mood Sepsis Event Note - Evaluation Sepsis Screening Result: No Definite Risk - Focused Exam Vital Signs: Vital Signs Temp Pulse Resp BP Pulse Ox 02/24/20 08:00 98.2 F 74 20 126/58 L 92 L 02/24/20 04:00 97.9 F 63 20 120/63 93 L 02/24/20 00:00 98.2 F 76 20 146/60 H 91 L Date Exam was Performed: 02/24/20 Time Exam was Performed: 11:35 - Problem List Review Problem List Initiated/Reviewed/Updated: Yes - My Orders Last 24 Hours: My Active Orders 02/23/20 12:35 Activity as Tolerated [RC] .Routine 02/23/20 12:36 Code Status [Resuscitation Status] Stat 02/23/20 12:45 Nicotine [Habitrol] 21 mg TRDERM DAILY 02/23/20 13:34 RT Aerosol Therapy [RC] ASDIRECTED 02/23/20 14:00 Albuterol/Ipratropium [DuoNeb 3.0-0.5 MG/3 ML] 3 ml NEB Q4HRRT 02/23/20 17:00 Omeprazole 20 mg PO BIDAC 02/23/20 Dinner Regular Diet [DIET] 02/24/20 07:53 Accu Check [Blood Glucose Check, Bedside] [RC] TIDMEALS 02/24/20 09:00 methylPREDNISolone Sod Succ [Solu-MEDROL] 125 mg IVPUSH DAILY 02/24/20 11:30 Insulin Aspart [NovoLOG] See Protocol SUBCUT TIDAC - Plan Plan:: Assessment; 1. Acute hypoxic respiratory failure 2ndry to COPD exacerbation 2. Daily tobacco abuse 3. Leukocytosis: on steroids now 4. HTN 5. hyperglycemia Plan Admit to obs. Full code. Vitals per routine. up ad apple. Diet: regular DVT: heparin 5000 q12. GI prophylaxis:omeprazole 20 bid. Nicotine patch COVID - 1. Clinical diagnosis of COPD in setting of chronic daily tobacco abuse: received IV methylpred in ED ; continue daily methylpred 140. IV fluids : maintenance; no discernible Pseudomonal risk factors except for COPD ; will start pt. on respiratory fluoroquinolone: continue Levaquin 750 daily Will trial O2 walking challenge Hyperglycemia: TID accu-check + low dose sliding scale A1c : 5.9 On steroids Duo-nebs q 4hrs scheduled; can switch to ipratropium alone if tachycardia worsens; NSR now CT-angio negative for obvious acute PE; will recheck if worsening despite current management Continue supplemental O2 for maintaining sats >92% 2. HTN: no home meds 3. Tobacco abuse: 21 mcg nicotine patch daily 4. 4 mm nodule in RUL: incidental finding ; recommended repeat imaging in 1-2 months per radiology.
[2020-02-24] MEDS: Insulin Aspart 100 Units/ML 3 ML Pen SUBCUT SCH ×2 (13:17→17:19)
[2020-02-24] MEDS: Docusate Sodium 100 MG Cap PO PRN (16:04)
[2020-02-24] MEDS ORDERED: Levofloxacin/Dextrose 5%-Water 750 MG in Premix Bag 1 BAG IV SCH (16:30)
[2020-02-25] MEDS: Heparin Sodium 5,000 Units/ML Vial SUBCUT SCH (02:55)
[2020-02-25] MEDS: Albuterol/Ipratropium 3.0-0.5 MG/3 ML Neb Soln NEB SCH ×2 (02:55→05:38)
[2020-02-25 06:41] LABS: BLOOD UREA NITROGEN,BUN 13 mg/dL (7.0-18.0); CARBON DIOXIDE,CO2 30.2 mmol/L (21.0-32.0); CHLORIDE,CL 103 mmol/L (98-107); GLUCOSE RANDOM 109 mg/dL (74-106); POTASSIUM,K 4.9 mmol/L (3.5-5.1); SODIUM,NA 141 mmol/L (136-148)
[2020-02-25] MEDS: Omeprazole 20 MG Cap.CR PO SCH (07:37)
[2020-02-25] MEDS: Insulin Aspart 100 Units/ML 3 ML Pen SUBCUT SCH (07:38)
[2020-02-25] MEDS: methylPREDNISolone Sodium Succinate 125 MG/2 ML SDV IVPUSH SCH (08:54)
[2020-02-25] MEDS: Nicotine 21 MG/24 Hr Patch TRDERM SCH (08:54)
[2020-02-25] MEDS: Docusate Sodium 100 MG Cap PO PRN (09:01)
--- NOTE | 2020-02-25 10:23 | PCM.DCSUM1 ---
<Rayray Carr - Last Filed: 02/25/20 15:21> Discharge Summary - Hospital Course Free Text/Narrative:: pt. is a 59 y.o male w. significant PMH of 2 PPD tobacco abuse >20 years, HTN; presented to the ED w. increasing SOB, cough, productive , and dyspena on exertion. ED course: pt. was found to in hypoxic respiratory failure requiring supplemental O2; EKG : Sinus tachycardia CXR: emphysematous changes but no acute infiltrates Troponin negative. Received multiple doses of Duo-nebs and brief use of Bipap w. interval improvement. Admitted for COPD exacerbation. Received Supplemental o2 for maintenance of Sats > 88%, methylprednisolone 124 IV daily, Duo-nebs q4hrs Scheduled ; ultiamtely weaned to q6hrs. Levaquin 750 daily Nicotine patch applied Day of discharge: breathing improved; walking trial established maintating sats w.o supplement; Sent home with additional 4 days of Levaquin 750 daily, advair, medrol dose pack and nicotine patches. Follow up with PCP established. Advised to dc tobacco abuse. Outpatient PFT's appointment established. ADvised to Return to hospital if breathing changes , becomes labored or CP develop. pt understood. Discharged in stable condition. - Discharge Data Discharge Date: 02/25/20 Discharge Disposition: Home, Self-Care 01 Condition: Good - Referral to Home Health Primary Care Physician: PCP None - Discharge Plan Prescriptions/Med Rec: Albuterol Sulfate [Albuterol Sulfate Hfa] 6.7 gm IH BID PRN 30 Days #1 hfa.aer.ad PRN Reason: Cough Fluticasone Propion/Salmeterol [Advair 250-50 Diskus] 1 each IH DAILY 30 Days # 1 blst.w.dev levoFLOXacin [Levaquin] 750 mg PO DAILY 4 Days #4 tablet methylPREDNISolone [Medrol Dose Pack] 4 mg PO DAILY #1 dospk Nicotine [Nicotine Patch] 21 mg TD DAILY 30 Days #30 patch Home Medications: Home Meds Albuterol Sulfate [Albuterol Sulfate Hfa] 6.7 gm IH BID PRN 30 Days #1 hfa.aer.ad 02/25/20 [Rx] Fluticasone Propion/Salmeterol [Advair 250-50 Diskus] 1 each IH DAILY 30 Days # 1 blst.w.dev 02/25/20 [Rx] Nicotine [Habitrol] 21 mg TRDERM DAILY patch 02/25/20 [Rx] Nicotine [Nicotine Patch] 21 mg TD DAILY 30 Days #30 patch 02/25/20 [Rx] levoFLOXacin [Levaquin] 750 mg PO DAILY 4 Days #4 tablet 02/25/20 [Rx] methylPREDNISolone [Medrol Dose Pack] 4 mg PO DAILY #1 dospk 02/25/20 [Rx] Patient Handouts: Hypoxia, Albuterol inhalation aerosol, Chronic Obstructive Pulmonary Disease, [id number], Levofloxacin tablets, Fluticasone inhalation aerosol, Methylprednisolone tablets Referrals: Rayray Carr MD [Resident] - 03/07/20 1:30 pm (Arrive 15 minutes with photo ID , insurance card, and discharge paperwork. ) - Discharge Summary/Plan Comment DC Time >30 min.: No - Patient Data Vitals - Most Recent: Last Vital Signs Temp 99.3 F 02/25/20 04:21 Pulse 60 02/25/20 04:21 Resp 16 02/25/20 04:21 BP 142/62 H 02/25/20 04:21 Pulse Ox 91 L 02/25/20 04:21 Weight - Most Recent: 74.843 kg I&O - Last 24 hours: Intake & Output 02/24/20 02/25/20 02/25/20 22:59 06:59 14:59 Intake Total 860 800 Output Total 700 950 Balance 160 -150 Lab Results - Last 24 hrs: Laboratory Results - last 24 hr 02/24/20 02/24/20 02/25/20 Range/Units 12:12 17:11 06:01 WBC 18.16 H (4.0-11.0) K/uL RBC 4.58 (4.50-5.90) M/uL Hgb 14.7 (13.0-17.0) g/dL Hct 44.5 (38.0-50.0) % MCV 97.2 (80.0-98.0) fL MCH 32.1 H (27.0-32.0) pg MCHC 33.0 (31.0-37.0) g/dL RDW Std Deviation 51.6 (28.0-62.0) fl RDW Coeff of Andrew 14 (11.0-15.0) % Plt Count 218 (150-400) K/uL MPV 9.40 (7.40-12.00) fL Neut % (Auto) 74.7 (48.0-80.0) % Lymph % (Auto) 17.1 (16.0-40.0) % [place] % (Auto) 8.0 (0.0-15.0) % Eos % (Auto) 0.1 (0.0-7.0) % Baso % (Auto) 0.1 (0.0-1.5) % Neut # (Auto) 13.6 H (1.4-5.7) K/uL Lymph # (Auto) 3.1 H (0.6-2.4) K/uL [place] # (Auto) 1.5 H (0.0-0.8) K/uL Eos # (Auto) 0.0 (0.0-0.7) K/uL Baso # (Auto) 0.0 (0.0-0.1) K/uL Nucleated RBC % 0.0 /100WBC Nucleated RBCs # 0 K/uL Sodium (136-148) mmol/L Potassium (3.5-5.1) mmol/L Chloride (98-107) mmol/L Carbon Dioxide (21.0-32.0) mmol/L BUN (7.0-18.0) mg/dL Creatinine (0.8-1.3) mg/dL Est Cr Clr Drug Dosing mL/min Estimated GFR (MDRD) ml/min Glucose (74-106) mg/dL POC Glucose 153 H 184 H (60-110) mg/dL Calcium (8.5-10.1) mg/dL Total Bilirubin (0.2-1.0) mg/dL AST (15-37) IU/L ALT (14-63) IU/L Alkaline Phosphatase (46-116) U/L Total Protein (6.4-8.2) g/dL Albumin (3.4-5.0) g/dL Globulin (2.6-4.0) g/dL Albumin/Globulin Ratio (0.9-1.6) 12 Range/Units 06:01 WBC (4.0-11.0) K/uL RBC (4.50-5.90) M/uL Hgb (13.0-17.0) g/dL Hct (38.0-50.0) % MCV (80.0-98.0) fL MCH (27.0-32.0) pg MCHC (31.0-37.0) g/dL RDW Std Deviation (28.0-62.0) fl RDW Coeff of Andrew (11.0-15.0) % Plt Count (150-400) K/uL MPV (7.40-12.00) fL Neut % (Auto) (48.0-80.0) % Lymph % (Auto) (16.0-40.0) % [place] % (Auto) (0.0-15.0) % Eos % (Auto) (0.0-7.0) % Baso % (Auto) (0.0-1.5) % Neut # (Auto) (1.4-5.7) K/uL Lymph # (Auto) (0.6-2.4) K/uL [place] # (Auto) (0.0-0.8) K/uL Eos # (Auto) (0.0-0.7) K/uL Baso # (Auto) (0.0-0.1) K/uL Nucleated RBC % /100WBC Nucleated RBCs # K/uL Sodium 141 (136-148) mmol/L Potassium 4.9 (3.5-5.1) mmol/L Chloride 103 (98-107) mmol/L Carbon Dioxide 30.2 (21.0-32.0) mmol/L BUN 13 (7.0-18.0) mg/dL Creatinine 0.9 (0.8-1.3) mg/dL Est Cr Clr Drug Dosing 93.55 mL/min Estimated GFR (MDRD) > 60.0 ml/min Glucose 109 H (74-106) mg/dL POC Glucose (60-110) mg/dL Calcium 9.4 (8.5-10.1) mg/dL Total Bilirubin 0.6 (0.2-1.0) mg/dL AST 21 (15-37) IU/L ALT 23 (14-63) IU/L Alkaline Phosphatase 38 L (46-116) U/L Total Protein 7.0 (6.4-8.2) g/dL Albumin 3.9 (3.4-5.0) g/dL Globulin 4.1 H (2.6-4.0) g/dL Albumin/Globulin Ratio 1.3 (0.9-1.6) JOHN Results - Last 24 hrs: Microbiology 02/23/20 09:31 Aerobic Blood Culture - Preliminary Blood - Venous NO GROWTH AFTER 2 DAYS Anaerobic Blood Culture - Preliminary NO GROWTH AFTER 2 DAYS 02/23/20 09:25 Aerobic Blood Culture - Preliminary Blood NO GROWTH AFTER 2 DAYS Anaerobic Blood Culture - Preliminary NO GROWTH AFTER 2 DAYS Med Orders - Current: Current Medications Albuterol/Ipratropium (Duoneb 3.0-0.5 Mg/3 Ml) 3 ml NEB Q6HRRT [facility] Docusate Sodium (Colace) 100 mg PO BID PRN PRN Reason: Constipation Last Admin: 02/25/20 09:01 Dose: 100 mg Heparin Sodium (Porcine) (Heparin Sodium) 5,000 units SUBCUT Q12H [facility] Last Admin: 02/25/20 02:55 Dose: 5,000 units Insulin Aspart (Novolog) 0 unit SUBCUT TIDAC [facility]; Protocol Last Admin: 02/25/20 07:38 Dose: Not Given Levofloxacin (Levaquin) 750 mg PO Q24H [facility] Methylprednisolone Sodium Succinate (Solu-Medrol) 125 mg IVPUSH DAILY [facility] Last Admin: 02/25/20 08:54 Dose: 125 mg Nicotine (Habitrol) 21 mg TRDERM DAILY [facility] Last Admin: 02/25/20 08:54 Dose: 21 mg Nitroglycerin (Nitrostat) 0.4 mg SL Q5M PRN PRN Reason: Chest Pain Last Admin: 02/23/20 08:11 Dose: 0.4 mg Omeprazole (Omeprazole) 20 mg PO BIDAC [facility] Last Admin: 02/25/20 07:37 Dose: 20 mg Sodium Chloride (Saline Flush) 10 ml FLUSH ASDIRECTED PRN PRN Reason: Keep Vein Open Last Admin: 02/23/20 08:11 Dose: 10 ml Sodium Chloride (Saline Flush) 2.5 ml FLUSH ASDIRECTED PRN PRN Reason: Keep Vein Open Last Admin: 02/23/20 08:11 Dose: 2.5 ml Discontinued Medications Albuterol/Ipratropium (Duoneb 3.0-0.5 Mg/3 Ml) 3 ml NEB ONETIME ONE Stop: 02/23/20 08:17 Last Admin: 02/23/20 08:31 Dose: 3 ml Albuterol/Ipratropium (Duoneb 3.0-0.5 Mg/3 Ml) 3 ml NEB ONETIME ONE Stop: 02/23/20 08:29 Last Admin: 02/23/20 08:31 Dose: 3 ml Albuterol/Ipratropium (Duoneb 3.0-0.5 Mg/3 Ml) 3 ml NEB ONETIME ONE Stop: 02/23/20 08:30 Last Admin: 02/23/20 08:31 Dose: 3 ml Albuterol/Ipratropium (Duoneb 3.0-0.5 Mg/3 Ml) 3 ml NEB Q4HRRT [facility] Last Admin: 02/25/20 05:38 Dose: Not Given Aspirin (Aspirin) 324 mg PO ONETIME ONE Stop: 02/23/20 08:00 Last Admin: 02/23/20 08:10 Dose: 324 mg Heparin Sodium (Porcine) (Heparin Sodium) 5,000 units IVPUSH Q12H [facility] Last Admin: 02/24/20 01:23 Dose: Not Given Sodium Chloride (Normal Saline) 1,000 mls @ 999 mls/hr IV .Bolus ONE Stop: 02/23/20 09:41 Last Infusion: 02/23/20 09:10 Dose: 999 mls/hr Sodium Chloride (Normal Saline) 1,000 mls @ 120 mls/hr IV CONTINUOUS ONE Stop: 02/23/20 20:58 Last Admin: 02/23/20 13:20 Dose: 120 mls/hr Levofloxacin/Dextrose 750 mg/ (Premix) 150 mls @ 100 mls/hr IV DAILY ONE Stop: 02/23/20 14:54 Last Admin: 02/23/20 13:44 Dose: 100 mls/hr Levofloxacin/Dextrose 750 mg/ (Premix) 150 mls @ 100 mls/hr IV Q24H [facility] Last Admin: 02/24/20 17:11 Dose: 100 mls/hr Iopamidol (Isovue Multipack-370 (76%)) 50 ml IVPUSH ONETIME STA Stop: 02/23/20 15:10 Last Admin: 02/23/20 15:15 Dose: 50 ml Methylprednisolone Sodium Succinate (Solu-Medrol) 125 mg IVPUSH ONETIME ONE Stop: 02/23/20 08:17 Last Admin: 02/23/20 08:26 Dose: 125 mg <Benitez Canales - Last Filed: 02/28/20 14:03> Discharge Summary - Referral to Home Health Primary Care Physician: PCP None - Patient Data Vitals - Most Recent: Last Vital Signs Temp 37.4 C 02/25/20 08:00 Pulse 72 02/25/20 08:00 Resp 18 02/25/20 08:00 BP 138/60 02/25/20 08:00 Pulse Ox 92 L 02/25/20 08:00 JOHN Results - Last 24 hrs: Microbiology 02/23/20 09:31 Aerobic Blood Culture - Final Blood - Venous NO GROWTH AFTER 5 DAYS Anaerobic Blood Culture - Final NO GROWTH AFTER 5 DAYS 02/23/20 09:25 Aerobic Blood Culture - Final Blood NO GROWTH AFTER 5 DAYS Anaerobic Blood Culture - Final NO GROWTH AFTER 5 DAYS Med Orders - Current: Current Medications Discontinued Medications Albuterol/Ipratropium (Duoneb 3.0-0.5 Mg/3 Ml) 3 ml NEB ONETIME ONE Stop: 02/23/20 08:17 Last Admin: 02/23/20 08:31 Dose: 3 ml Albuterol/Ipratropium (Duoneb 3.0-0.5 Mg/3 Ml) 3 ml NEB ONETIME ONE Stop: 02/23/20 08:29 Last Admin: 02/23/20 08:31 Dose: 3 ml Albuterol/Ipratropium (Duoneb 3.0-0.5 Mg/3 Ml) 3 ml NEB ONETIME ONE Stop: 02/23/20 08:30 Last Admin: 02/23/20 08:31 Dose: 3 ml Albuterol/Ipratropium (Duoneb 3.0-0.5 Mg/3 Ml) 3 ml NEB Q4HRRT [facility] Last Admin: 02/25/20 05:38 Dose: Not Given Albuterol/Ipratropium (Duoneb 3.0-0.5 Mg/3 Ml) 3 ml NEB Q6HRRT [facility] Last Admin: 02/25/20 11:11 Dose: 3 ml Aspirin (Aspirin) 324 mg PO ONETIME ONE Stop: 02/23/20 08:00 Last Admin: 02/23/20 08:10 Dose: 324 mg Docusate Sodium (Colace) 100 mg PO BID PRN PRN Reason: Constipation Last Admin: 02/25/20 09:01 Dose: 100 mg Heparin Sodium (Porcine) (Heparin Sodium) 5,000 units IVPUSH Q12H [facility] Last Admin: 02/24/20 01:23 Dose: Not Given Heparin Sodium (Porcine) (Heparin Sodium) 5,000 units SUBCUT Q12H [facility] Last Admin: 02/25/20 02:55 Dose: 5,000 units Sodium Chloride (Normal Saline) 1,000 mls @ 999 mls/hr IV .Bolus ONE Stop: 02/23/20 09:41 Last Infusion: 02/23/20 09:10 Dose: 999 mls/hr Sodium Chloride (Normal Saline) 1,000 mls @ 120 mls/hr IV CONTINUOUS ONE Stop: 02/23/20 20:58 Last Admin: 02/23/20 13:20 Dose: 120 mls/hr Levofloxacin/Dextrose 750 mg/ (Premix) 150 mls @ 100 mls/hr IV DAILY ONE Stop: 02/23/20 14:54 Last Admin: 02/23/20 13:44 Dose: 100 mls/hr Levofloxacin/Dextrose 750 mg/ (Premix) 150 mls @ 100 mls/hr IV Q24H [facility] Last Admin: 02/24/20 17:11 Dose: 100 mls/hr Insulin Aspart (Novolog) 0 unit SUBCUT TIDAC [facility]; Protocol Last Admin: 02/25/20 07:38 Dose: Not Given Iopamidol (Isovue Multipack-370 (76%)) 50 ml IVPUSH ONETIME STA Stop: 02/23/20 15:10 Last Admin: 02/23/20 15:15 Dose: 50 ml Levofloxacin (Levaquin) 750 mg PO Q24H [facility] Methylprednisolone Sodium Succinate (Solu-Medrol) 125 mg IVPUSH ONETIME ONE Stop: 02/23/20 08:17 Last Admin: 02/23/20 08:26 Dose: 125 mg Methylprednisolone Sodium Succinate (Solu-Medrol) 125 mg IVPUSH DAILY [facility] Last Admin: 02/25/20 08:54 Dose: 125 mg Nicotine (Habitrol) 21 mg TRDERM DAILY [facility] Last Admin: 02/25/20 08:54 Dose: 21 mg Nitroglycerin (Nitrostat) 0.4 mg SL Q5M PRN PRN Reason: Chest Pain Last Admin: 02/23/20 08:11 Dose: 0.4 mg Omeprazole (Omeprazole) 20 mg PO BIDAC [facility] Last Admin: 02/25/20 07:37 Dose: 20 mg Sodium Chloride (Saline Flush) 10 ml FLUSH ASDIRECTED PRN PRN Reason: Keep Vein Open Last Admin: 02/23/20 08:11 Dose: 10 ml Sodium Chloride (Saline Flush) 2.5 ml FLUSH ASDIRECTED PRN PRN Reason: Keep Vein Open Last Admin: 02/23/20 08:11 Dose: 2.5 ml - Free Text/Narrative Note: I have seen and evaluated the patient with the resident. I have discussed findings and treatment plan with resident. I agree with the assessment and plan as outlined in the following note.
[2020-02-25] MEDS ORDERED: Albuterol/Ipratropium 3.0-0.5 MG/3 ML Neb Soln NEB SCH (12:00)
[2020-02-25 13:07] VITALS: BP 138/60; PULSE 72
[2020-02-25] MEDS ORDERED: Levofloxacin 250 MG Tab PO SCH (16:00)
== END 2020-02-25 12:45 | disposition home or self-care (01) | DRG 133 ==
LOC: MW.ED 07:53 → MW.MS 12:34
PROVIDERS: ADMIT Student in an Organized Health Care Education/Training Program; ATTEND Student in an Organized Health Care Education/Training Program
DX: J96.01 Acute respiratory failure with hypoxia (principal); J44.1 Chronic obstructive pulmonary disease with (acute) exacerbation; F17.210 Nicotine dependence, cigarettes, uncomplicated; I10 Essential (primary) hypertension; Z79.899 Other long term (current) drug therapy; R91.1 Solitary pulmonary nodule; R73.9 Hyperglycemia, unspecified; Z20.828 Contact with and (suspected) exposure to other viral communicable diseases
CPT/HCPCS: 31500; 36415; 36600; 71045; 71045-26; 71275; 71275-26; 80053; 82728; 82803; 82962; 83036; 83605; 83615; 83880; 84145; 84484; 85025; 85379; 85610; 85730; 87040; 92950; 93005; 94640; 94660; 96374; 99291; A9270-GY; J1644; J1815-GY; J1956; J2930; J7030; J7620-GY; Q9967; U0002